=== PATIENT | female | born 1970 | race American Indian/Alaskan Native ===

== ENCOUNTER 2020-03-25 03:07 | Emergency (ER) | payer SELFPAY ==
[2020-03-25 03:27] VITALS: BP 166/73
--- NOTE | 2020-03-25 04:11 | XRay Report ---
RIGHT KNEE 4 VIEW(S) INDICATION / CLINICAL INFORMATION: Right knee pain COMPARISON: None available. FINDINGS: BONES / JOINT(S): Moderately advanced tricompartmental right knee degenerative arthrosis most pronoun osbaldo within the lateral femoral tibial compartment. No significant arthritis. SOFT TISSUES: No significant abnormality. ADDITIONAL FINDINGS: None. Signer Name: Walter Zhang MD Signed: 03/25/2020 4:07 AM Workstation Name: [id number]
--- NOTE | 2020-03-25 05:01 | Emergency Department Report ---
ED General Adult HPI - General Chief complaint: Extremity Injury, Lower Stated complaint: RT KNEE PAIN Time Seen by Provider: 03/25/20 04:54 Source: patient Mode of arrival: Ambulatory Limitations: No Limitations - History of Present Illness Initial comments: 49-year-old -[place] female patient presents with complaints of right knee pain x2 months. Patient denies any specific injury to the knee, however states she has been having a small limp due to her knee feeling out of place for the past 2 months. She rates her pain as a 3/10 in severity and states BenGay is not helping. She denies any history of cancer, fever/chills/sweats, urinary symptoms/vaginal discharge, or numbness/tingling/weakness in her right limb. -: Gradual Severity scale (0 -10): 10 - Related Data Previous Rx's Medication Instructions Recorded Last Taken Type Diclofenac Sodium [Solaraze 3%] 1 applicatio TP QID PRN #1 03/25/20 Unknown Rx gel..gram. Allergies Allergy/AdvReac Type Severity Reaction Status Date / Time No Known Allergies Allergy Unverified 03/25/20 03:17 ED Review of Systems ROS: Stated complaint: RT KNEE PAIN Other details as noted in HPI Constitutional: denies: chills, fever, malaise, weakness Genitourinary: denies: urgency, dysuria, frequency, hematuria, discharge, dyspareunia Musculoskeletal: arthralgia. denies: joint swelling Skin: denies: rash, lesions, change in color Neurological: denies: numbness, paresthesias ED Past Medical Hx - Past Medical History Previous Medical History?: No - Surgical History Past Surgical History?: No - Social History Smoking Status: Never Smoker Substance Use Type: None - Medications Home Medications: Home Medications Medication Instructions Recorded Confirmed Last Taken Type Diclofenac Sodium [Solaraze 3%] 1 applicatio TP QID PRN #1 03/25/20 Unknown Rx gel..gram. ED Physical Exam - General Limitations: No Limitations General appearance: alert, in no apparent distress, obese - Head Head exam: Present: atraumatic, normocephalic - Eye Eye exam: Present: normal appearance - Respiratory Respiratory exam: Absent: respiratory distress - Cardiovascular Cardiovascular Exam: Present: regular rate - Expanded Lower Extremity Exam Right Knee exam: Present: full ROM, deformity (Genu valgum deformity noted bilaterally knees). Absent: tenderness, swelling, abrasion, laceration, ecchymosis, dislocation, erythema, effusion Lower Leg exam: Present: normal inspection Neuro vascular tendon exam: Present: no vascular compromise - Neurological Exam Neurological exam: Present: alert, oriented X3 - Psychiatric Psychiatric exam: Present: normal affect, normal mood - Skin Skin exam: Present: warm, dry, intact, normal color. Absent: rash, cyanosis, diaphoretic, erythema, ecchymosis ED Course Vital Signs 03/25/20 03:25 Temperature 98.7 F Pulse Rate 75 Respiratory 18 Rate Blood Pressure 166/73 [Left] O2 Sat by Pulse 100 Oximetry ED Medical Decision Making - Radiology Data Radiology results: report reviewed RIGHT KNEE 4 VIEW(S) INDICATION / CLINICAL INFORMATION: Right knee pain COMPARISON: None available. FINDINGS: BONES / JOINT(S): Moderately advanced tricompartmental right knee degenerative arthrosis most pronounced within the lateral femoral tibial compartment. No significant arthritis. SOFT TISSUES: No significant abnormality. ADDITIONAL FINDINGS: None. - Medical Decision Making 49-year-old -[place] female patient presents with complaints of right knee pain x2 months. Patient denies any specific injury to the knee, however states she has been having a small limp due to her knee feeling out of place for the past 2 months. She rates her pain as a 3/10 in severity and states BenGay is not helping. She denies any history of cancer, fever/chills/sweats, urinary symptoms/vaginal discharge, or numbness/tingling/weakness in her right limb. X-ray shows the following: Moderately advanced tricompartmental right knee degenerative arthrosis most pronounced within the lateral femoral tibial compartment. Knee findings are chronic. Recommend follow-up with further evaluation and treatment via orthopedics. Voltaren gel prescribed. She is well-appearing and stable for discharge home. Strict return precautions were discussed in detail with patient who verbalizes understanding. Critical care attestation.: If time is entered above; I have spent that time in minutes in the direct care of this critically ill patient, excluding procedure time. ED Disposition Clinical Impression: Arthritis of right knee Disposition: DC-01 TO HOME OR SELFCARE Is pt being admited?: No Condition: Stable Instructions: Osteoarthritis (ED) Additional Instructions: You may try [id number] co-Q10 and chondroitin as needed for your joint pain Prescriptions: Diclofenac Sodium [Solaraze 3%] 1 applicatio TP QID PRN #1 gel..gram. PRN Reason: pain Referrals: ERNA GRAHAM MD [Staff Physician] - 3-5 Days GEORGINA OVIEDO MD [Staff Physician] - 3-5 Days
== END 2020-03-25 06:00 | disposition home or self-care (01) ==
LOC: ED 03:07
DX: M13.861 Other specified arthritis, right knee (principal); Z79.899 Other long term (current) drug therapy
CPT/HCPCS: 99283

== ENCOUNTER 2020-10-15 17:46 | Emergency (ER) | payer SELFPAY ==
[2020-10-15 19:32] VITALS: BP 157/56
--- NOTE | 2020-10-15 20:27 | Emergency Department Report ---
ED General Adult HPI - General Chief complaint: Dental/Oral Stated complaint: TOOTHACHE Time Seen by Provider: 10/15/20 19:52 Source: patient Mode of arrival: Ambulatory Limitations: No Limitations - History of Present Illness Initial comments: 50-year-old -[place] female patient presents with complaints of left upper dental pain x1 week. She states history of recurrent dental infections for which he normally takes Amoxil for and it works well. Patient states she had some leftover Amoxil and had been taking 500 mg 3 times a day for the past 2 days without improvement in her symptoms. No facial swelling, fever/chills/sweats, or difficulty opening her jaw/dysphagia. She rates her current pain as a 9/10 in severity states OCC anti-inflammatories are not helping. - Related Data Previous Rx's Medication Instructions Recorded Last Taken Type Diclofenac Sodium [Solaraze 3%] 1 applicatio TP QID PRN #1 03/25/20 Unknown Rx gel..gram. Acetaminophen/Codeine [Tylenol 1 tab PO Q6H PRN #12 tab 10/15/20 Unknown Rx /Codeine # 3 tab] Clindamycin [Clindamycin CAP] 300 mg PO Q6H 10 Days #40 capsule 10/15/20 Unknown Rx Diclofenac Sodium 50 mg PO TID PRN #30 tablet. 10/15/20 Unknown Rx Allergies Allergy/AdvReac Type Severity Reaction Status Date / Time No Known Allergies Allergy Unverified 03/25/20 03:17 ED Review of Systems ROS: Stated complaint: TOOTHACHE Other details as noted in HPI Constitutional: denies: chills, fever, malaise ENT: dental pain. denies: throat pain Respiratory: denies: cough, shortness of breath Cardiovascular: denies: chest pain Skin: denies: change in color Hematological/Lymphatic: denies: swollen glands ED Past Medical Hx - Past Medical History Previous Medical History?: No - Surgical History Past Surgical History?: No - Social History Smoking Status: Never Smoker Substance Use Type: None - Medications Home Medications: Home Medications Medication Instructions Recorded Confirmed Last Taken Type Diclofenac Sodium [Solaraze 3%] 1 applicatio TP QID PRN #1 03/25/20 Unknown Rx gel..gram. Acetaminophen/Codeine [Tylenol 1 tab PO Q6H PRN #12 tab 10/15/20 Unknown Rx /Codeine # 3 tab] Clindamycin [Clindamycin CAP] 300 mg PO Q6H 10 Days #40 capsule 10/15/20 Unknown Rx Diclofenac Sodium 50 mg PO TID PRN #30 tablet. 10/15/20 Unknown Rx ED Physical Exam - General Limitations: No Limitations General appearance: alert, in no apparent distress - Head Head exam: Present: atraumatic, normocephalic - Eye Eye exam: Present: normal appearance. Absent: scleral icterus - Expanded ENT Exam Expanded Mouth exam: Present: tongue normal. Absent: drooling, trismus, muffled voice 1 - Dental Tenderness (Deep dental carry noted; no obvious abscess; no overlying facial swelling) Throat exam: Positive: normal inspection - Neck Neck exam: Present: normal inspection, full ROM. Absent: tenderness, lymphadenopathy - Respiratory Respiratory exam: Absent: respiratory distress - Cardiovascular Cardiovascular Exam: Present: regular rate - Back Exam Back exam: Present: full ROM - Neurological Exam Neurological exam: Present: alert, oriented X3 - Psychiatric Psychiatric exam: Present: normal affect, normal mood - Skin Skin exam: Present: warm, dry, intact, normal color. Absent: rash ED Course Vital Signs 10/15/20 19:30 Temperature 97.6 F Pulse Rate 65 Respiratory 18 Rate Blood Pressure 157/56 O2 Sat by Pulse 100 Oximetry ED Medical Decision Making - Medical Decision Making 50-year-old -[place] female patient presents with complaints of left upper dental pain x1 week. She states history of recurrent dental infections for which he normally takes Amoxil for and it works well. Patient states she had some leftover Amoxil and had been taking 500 mg 3 times a day for the past 2 days without improvement in her symptoms. No facial swelling, fever/chills/sweats, or difficulty opening her jaw/dysphagia. She rates her current pain as a 9/10 in severity states OCC anti-inflammatories are not helping. We will treat with clindamycin. Recommend follow-up with dental specialist within 2 to 3 days. Patient provided with dental clinic referral list. Her vitals are normal, she is well-appearing, she is stable for discharge home. Discussed strict return precautions in detail with patient who verbalizes understanding. Critical care attestation.: If time is entered above; I have spent that time in minutes in the direct care of this critically ill patient, excluding procedure time. ED Disposition Clinical Impression: Pain due to dental caries Disposition: TO HOME OR SELFCARE Is pt being admited?: No Condition: Stable Instructions: Dental Abscess, [id number], Tooth Injuries, [id number] Prescriptions: Clindamycin [Clindamycin CAP] 300 mg PO Q6H 10 Days #40 capsule Diclofenac Sodium 50 mg PO TID PRN #30 tablet.dr PRN Reason: knee pain Acetaminophen/Codeine [Tylenol /Codeine # 3 tab] 1 tab PO Q6H PRN #12 tab PRN Reason: Pain , Severe (7-10) Referrals: PRIMARY CARE,MD [Primary Care Provider] - 3-5 Days
== END 2020-10-15 20:44 | disposition home or self-care (01) ==
LOC: ED 17:46
DX: K02.9 Dental caries, unspecified (principal); Z79.899 Other long term (current) drug therapy
CPT/HCPCS: 99282